=== PATIENT | female | born 1940 | race Caucasian/White ===

== ENCOUNTER 2019-02-11 09:33 | Emergency (ER) | payer MEDICARE, SELFPAY ==
[2019-02-11 09:34] VITALS: BP 154/77; PULSE 63; RESP 17; TEMP 36.9; O2SAT 98; BMI 33.8
--- NOTE | 2019-02-11 10:13 | RAD_ITS ---
STUDY: X-RAY - LEFT KNEE REASON FOR EXAM: Female, 78 years old. Twisting injury TECHNIQUE: 4 view(s) of the knee. COMPARISON: None. FINDINGS: Mild osteoarthritis. No acute displaced fracture, or traumatic subluxation based on current assessment.. No significant pleural effusion. The soft tissue structures are unremarkable. RAD/Knee 4 or More Views IMPRESSION: Mild osteoarthritis. No acute displaced fracture, or traumatic subluxation based on current assessment. Electronically Signed: Deshawn Robertson MD at 11:07 EDT Tel [phone], Service support ,
--- NOTE | 2019-02-11 10:34 | ED.VIS.LOWEX ---
History of Present Illness Chief Complaint: Lower Extremity Injury Informant: Patient Occurred: Yesterday Mechanism/Context: - - twisted Onset: Yesterday Context: Sudden Onset Timing: Continuous Quality of Pain: Aching Location: medial left knee Current Severity: Mild Maximum Severity: Moderate Worsened by: walking Relieved by: resting Associated Symptoms: Negative for: Parasthesia, Weakness, Loss of Funtion Narrative: Patient states she was moving a dresser yesterday when she thinks she twisted her knee and had a sensation of a pop followed by pain mostly at the medial aspect and deep within. She has been able to walk and denies any blunt trauma. No neurologic symptoms distally. No other painful joints. - Past Medical History (1) Hyperlipidemia Status: Chronic Past Medical History - Allergies and Home Meds Allergies/Adverse Reactions: Allergies Sulfa (Sulfonamide Antibiotics) Allergy (Verified 02/11/19 09:34) Rash Primary Care Physician: [facility] [Provider Group] - 1 Week if not improving Uriel Pritchett MD [Primary Care Provider] - Lives: Spouse/ Significant Other Smoking Status: Never smoker Drugs: None Review of Systems Musculoskeletal: Reports: Extremity Pain. Denies: Swelling Skin: Denies: Rash, Wounds Neurological: Denies: Headache, Weakness, Numbness Physical Exam Vital Signs/Narrative: Vital Signs Temp Pulse Resp BP Pulse Ox 02/11/19 09:34 98.5 F 63 17 154/77 H 98 Inital Vital Signs reviewed: Yes - Extremity Exam Left Knee: Limited ROM - Only at extreme of flexion. Her range is excellent. Full extension with mechanism intact., - - Painful stressing of the MCL. Less painful stressing of the ACL, but there is no laxity on E[place]. No pain or laxity with posterior drawer and LCL stressing. No effusion. Mild bony tenderness at the medial joint line, no other bony tenderness. General: Well nourished, Well developed, - - Appearing, NAD Skin: Normal color, No rash, No Trauma Neurological: Alert, Oriented x3, Cranial nerves II-XII grossly intact, Normal Strength, Normal Sensation Psychological: Normal affect, Normal Mood Diagnostic/Tx/Re-eval Clinical Impression(s) from Imaging Studies Knee X-Ray 02/11/19 10:13 IMPRESSION: Mild osteoarthritis. No acute displaced fracture, or traumatic subluxation based on current assessment. Electronically Signed: Deshawn Robertson MD at 11:07 EDT Tel [phone], Service support , - Medical Decision Making X-rays as above. Suspect sprain of her MCL, not able to rule out terrible triad in the emergency department. Recommend supportive care and outpatient orthopedic follow-up, patient is agreeable and declines crutches. She was given an Benedict wrap. ED Disposition - Plan for ED Patient: Disposition: Home or Assisted Living Diagnosis: Sprain of medial collateral ligament of left knee, initial encounter Instructions: Knee Sprain Referrals: Uriel Pritchett MD [Primary Care Provider] - [facility] [Provider Group] - 1 Week if not improving
== END 2019-02-11 11:04 | disposition home or self-care (01) ==
PROVIDERS: Emergency Provider Emergency Medicine; Family Provider Family Medicine; PCP Family Medicine
DX: S83.412A Sprain of medial collateral ligament of left knee, initial encounter (principal); X50.1XXA Overexertion from prolonged static or awkward postures, initial encounter; Z88.2 Allergy status to sulfonamides; E78.5 Hyperlipidemia, unspecified; M17.12 Unilateral primary osteoarthritis, left knee
CPT/HCPCS: 73564; 99282